=== PATIENT | female | born 1980 | race Hispanic/Latino ===

== ENCOUNTER 2021-02-03 19:54 | Emergency (ER) | payer SELFPAY ==
[2021-02-03 20:05] VITALS: BP 140/89
[2021-02-03] MEDS ORDERED: IPRATROPIUM/ALBUTEROL SULFATE 3 ML AMPUL.NEB IH ONE (20:05)
--- NOTE | 2021-02-03 20:24 | Emergency Department Report ---
ED General Adult HPI - General Chief complaint: Upper Respiratory Infection Stated complaint: COUGH;CHILLS;DIARRHEA Time Seen by Provider: 02/03/21 20:05 Source: patient Mode of arrival: Ambulatory Limitations: No Limitations - History of Present Illness Initial comments: 40-year-old female patient presents with complaints of cough, shortness of breath, congestion x2 days. She states a history of recurrent bronchitis and states her symptoms seem to be consistent with her previous infections of bronchitis. Patient is a smoker. She denies any hemoptysis, chest pain, nausea/vomiting, or loss of taste/smell. She does report her children having upper respiratory infections recently. No fever/chills/sweats per patient. -: Sudden - Related Data Previous Rx's Medication Instructions Recorded Last Taken Type Clindamycin [Clindamycin CAP] 300 mg PO Q6HR #80 capsule 03/30/20 Unknown Rx Ibuprofen [Motrin] 800 mg PO Q8HR PRN #30 tablet 03/30/20 Unknown Rx Ofloxacin 0.3% [Floxin 0.3% Otic] 1 drop OT DAILY #5 ml 03/30/20 Unknown Rx Albuterol Mdi (or & Nicu Only) 2 puff IH Q4H PRN #8.5 gram 02/03/21 Unknown Rx [ProAir HFA Inhaler] Azithromycin [Zithromax Z-PADMINI] 0 mg PO DAILY #6 tab 02/03/21 Unknown Rx Prednisone [predniSONE 10 mg 10 mg PO .TAPER #1 tab.ds.pk 02/03/21 Unknown Rx (6-Day Pack, 21 Tabs)] Allergies Allergy/AdvReac Type Severity Reaction Status Date / Time No Known Allergies Allergy Unverified 03/29/20 23:47 ED Review of Systems ROS: Stated complaint: COUGH;CHILLS;DIARRHEA Other details as noted in HPI Constitutional: denies: chills, diaphoresis, fever, malaise, weakness ENT: denies: throat pain Respiratory: cough, shortness of breath Cardiovascular: denies: chest pain Endocrine: denies: excessive sweating Gastrointestinal: denies: abdominal pain, nausea, vomiting Skin: denies: change in color Neurological: denies: headache Hematological/Lymphatic: denies: swollen glands ED Past Medical Hx - Past Medical History Additional medical history: hypoglycemia - Surgical History Additional Surgical History: hysterectomy - Social History Smoking Status: Current Every Day Smoker - Medications Home Medications: Home Medications Medication Instructions Recorded Confirmed Last Taken Type Clindamycin [Clindamycin CAP] 300 mg PO Q6HR #80 capsule 03/30/20 Unknown Rx Ibuprofen [Motrin] 800 mg PO Q8HR PRN #30 tablet 03/30/20 Unknown Rx Ofloxacin 0.3% [Floxin 0.3% Otic] 1 drop OT DAILY #5 ml 03/30/20 Unknown Rx Albuterol Mdi (or & Nicu Only) 2 puff IH Q4H PRN #8.5 gram 02/03/21 Unknown Rx [ProAir HFA Inhaler] Azithromycin [Zithromax Z-PADMINI] 0 mg PO DAILY #6 tab 02/03/21 Unknown Rx Prednisone [predniSONE 10 mg 10 mg PO .TAPER #1 tab.ds.pk 02/03/21 Unknown Rx (6-Day Pack, 21 Tabs)] ED Physical Exam - General Limitations: No Limitations General appearance: alert, in no apparent distress, obese - Head Head exam: Present: atraumatic, normocephalic - Eye Eye exam: Present: normal appearance. Absent: scleral icterus - Neck Neck exam: Present: normal inspection - Respiratory Respiratory exam: Present: wheezes, rales, rhonchi. Absent: respiratory distress - Cardiovascular Cardiovascular Exam: Present: regular rate, normal rhythm - Back Exam Back exam: Present: full ROM - Neurological Exam Neurological exam: Present: alert, oriented X3 - Psychiatric Psychiatric exam: Present: normal affect, normal mood - Skin Skin exam: Present: warm, dry, intact, normal color. Absent: rash ED Course Vital Signs 02/03/21 02/03/21 20:01 20:04 Temperature 98.0 F Pulse Rate 94 H Respiratory 18 Rate Blood Pressure 140/89 [Right] O2 Sat by Pulse 97 Oximetry ED Medical Decision Making - Radiology Data Radiology results: report reviewed CHEST 2 VIEWS INDICATION / CLINICAL INFORMATION: diffuse abnormal breath sounds, cough, SOB. COMPARISON: None available. FINDINGS: SUPPORT DEVICES: None. HEART / MEDIASTINUM: No significant abnormality. LUNGS / PLEURA: No significant pulmonary or pleural abnormality. No pneumothorax. ADDITIONAL FINDINGS: No significant additional findings. IMPRESSION: 1. No acute findings. - Medical Decision Making 40-year-old female patient presents with complaints of cough, shortness of breath, congestion x2 days. She states a history of recurrent bronchitis and states her symptoms seem to be consistent with her previous infections of bronchitis. Patient is a smoker. She denies any hemoptysis, chest pain, nausea/vomiting, or loss of taste/smell. She does report her children having upper respiratory infections recently. No fever/chills/sweats per patient. Chest x-ray is negative for any acute abnormalities. Will treat for bronchitis with Z-Padmini, albuterol, and prednisone. Recommend follow-up with primary care doctor in 3 to 5 days. Her vitals are within normal limits, she is well- appearing, she is stable for discharge home strict return precautions were discussed in detail with patient who verbalized understanding. Critical care attestation.: If time is entered above; I have spent that time in minutes in the direct care of this critically ill patient, excluding procedure time. ED Disposition Clinical Impression: Acute bacterial bronchitis Disposition: - TO HOME OR SELFCARE Is pt being admited?: No Condition: Stable Instructions: Acute Bronchitis, Adult, Acute Bronchitis (ED) Prescriptions: Prednisone [predniSONE 10 mg (6-Day Pack, 21 Tabs)] 10 mg PO .TAPER #1 tab.ds.pk Albuterol Mdi (or & Nicu Only) [ProAir HFA Inhaler] 2 puff IH Q4H PRN #8.5 gram PRN Reason: Shortness Of Breath Azithromycin [Zithromax Z-PADMINI] 0 mg PO DAILY #6 tab Referrals: [facility] [Provider Group] - 3-5 Days Forms: Work/School Release Form(ED)
--- NOTE | 2021-02-03 20:35 | XRay Report ---
CHEST 2 VIEWS INDICATION / CLINICAL INFORMATION: diffuse abnormal breath sounds, cough, SOB. COMPARISON: None available. FINDINGS: SUPPORT DEVICES: None. HEART / MEDIASTINUM: No significant abnormality. LUNGS / PLEURA: No significant pulmonary or pleural abnormality. No pneumothorax. ADDITIONAL FINDINGS: No significant additional findings. IMPRESSION: 1. No acute findings. Signer Name: Darrius Samayoa MD Signed: 02/03/2021 8:30 PM Workstation Name: [id number]
== END 2021-02-03 21:35 | disposition home or self-care (01) ==
LOC: ED 19:54
DX: J20.8 Acute bronchitis due to other specified organisms (principal); B96.89 Other specified bacterial agents as the cause of diseases classified elsewhere; F17.200 Nicotine dependence, unspecified, uncomplicated; Z79.899 Other long term (current) drug therapy; Z90.710 Acquired absence of both cervix and uterus
CPT/HCPCS: 71046